=== PATIENT | female | born 2000 | race Caucasian/White ===

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

== ENCOUNTER → 2020-02-17 | Outpatient (CLI) | payer OTHER | LOC: EEVIPCON 14:23 → LABWHC1 14:23 | PROVIDERS: ATTEND Internal Medicine | DX: Z32.01 Encounter for pregnancy test, result positive (principal); Z3A.00 Weeks of gestation of pregnancy not specified | CPT/HCPCS: 36415; 84702 ==

== ENCOUNTER → 2020-03-12 | Outpatient (CLI) | payer OTHER ==
[2020-03-12 15:34] LABS: HCT 38.3 % (34.0-46.0); MCH 29.3 pg (25.0-35.0); MCV 86.2 fL (80.0-100.0); Mean Platelet Volume 7.8; Platelet Count 207 k/uL (150-450); RBC 4.44 m/uL (3.80-5.40); RDW 13.8 % (11.5-15.5); WBC 12.1 k/uL (4.0-11.0)
[2020-03-13 03:39] LABS: Hepatitis B Surface Antigen Non-Reactive (Non-Reactive)
[2020-03-13 04:08] LABS: African American GFR (CKD) 152.1 (60.0-200.0); Non-African American GFR(CKD) 131.2 (60.0-200.0)
[2020-03-13 05:17] LABS: Toxoplasma Antibody (IgG) <3.0 IU/mL (<7.2); Toxoplasma Antibody (IgM) <3.0 AU/mL (<8.0)
[2020-03-13 07:16] LABS: HIV 2 AB Non-Reactive (Non-Reactive); HIV AB P24 Non-Reactive (Non-Reactive); HIV P24 AG Non-Reactive (Non-Reactive)
== END | disposition home or self-care (01) ==
LOC: LABWHC1 14:20
PROVIDERS: ATTEND Obstetrics & Gynecology
DX: Z34.02 Encounter for supervision of normal first pregnancy, second trimester (principal); Z3A.00 Weeks of gestation of pregnancy not specified
CPT/HCPCS: 36415; 82565; 82947; 85027; 86762; 86777; 86778; 86780; 86850; 86900; 86901; 87340; 87390

== ENCOUNTER 2020-04-18 22:14 | Emergency (ER) | payer OTHER ==
[2020-04-18 22:27] VITALS: RESP 16
[2020-04-18] MEDS ORDERED: SODIUM CHLORIDE 0.9% 1,000 ML IV ONE (22:38)
--- NOTE | 2020-04-18 22:57 | ED ---
Female Urogenital HPI - General Chief complaint: Vaginal Bleeding Stated complaint: 19 Wks - Spotting Time Seen by Provider: 04/18/20 22:36 Source: patient Mode of arrival: ambulatory Limitations: no limitations - History of Present Illness Initial comments: Patient is a 19-year-old female, , 19 weeks , presenting to emergency Department with chief complaint of abdominal cramping and vaginal spotting. Patient reports she woke up at 8:30 tonight with some left and right- sided abdominal cramping. States she also noticed some vaginal spotting which has since resolved but the cramping is still persistent. Patient reports she t ypically vomits daily throughout her . States she does feel nauseous right now but did not vomit after the onset of the abdominal pain. She does report some back pain which she states is associated with the . She denies any night sweats or chills. Does report increased frequency more than her baseline but denies any urgency or dysuria. Denies hematuria, hematochezia melena. Denies any vaginal discharge or foul smell. Last Menstrual Period: 11/12/19 - Related Data Previous Rx's Medication Instructions Recorded FLUoxetine HCL [PROzac] 20 mg PO DAILY #30 cap 09/26/17 lamoTRIgine [LaMICtal] 100 mg PO DAILY #30 tab 09/26/17 Allergies Allergy/AdvReac Type Severity Reaction Status Date / Time No Known Allergies Allergy Verified 02/05/18 20:25 Review of Systems ROS Statement: Those systems with pertinent positive or pertinent negative responses have been documented in the HPI. ROS Other: All systems not noted in ROS Statement are negative. Past Medical History Past Medical History: No Reported History Additional Past Medical History / Comment(s): depression /last seizure at 14 years old History of Any Multi-Drug Resistant Organisms: None Reported Past Surgical History: Ear Surgery Past Anesthesia/Blood Transfusion Reactions: No Reported Reaction Past Psychological History: Anxiety, Depression Smoking Status: Never smoker Past Alcohol Use History: None Reported Past Drug Use History: None Reported, Marijuana - Past Family History Mother Family Medical History: No Reported History Father Family Medical History: No Reported History General Exam Limitations: no limitations General appearance: alert, in no apparent distress Head exam: Present: atraumatic, normocephalic, normal inspection Eye exam: Present: normal appearance, PERRL, EOMI Pupils: Present: normal accommodation ENT exam: Present: normal exam, normal oropharynx, mucous membranes moist Neck exam: Present: normal inspection, full ROM. Absent: tenderness Respiratory exam: Present: normal lung sounds bilaterally. Absent: respiratory distress, wheezes, rales, rhonchi Cardiovascular Exam: Present: regular rate, normal rhythm, normal heart sounds GI/Abdominal exam: Present: soft, tenderness (Mild left upper and right upper quadrant tenderness), normal bowel sounds, other (Fundus at the umbilicus). Absent: distended, guarding, rebound External exam: Present: normal external exam. Absent: erythema, swelling, lesions, lacerations, ecchymosis Speculum exam: Present: normal speculum exam. Absent: erythema, vaginal discharge, cervical discharge, vaginal bleeding, foreign body Extremities exam: Present: normal inspection, full ROM, normal capillary refill, other (+2 ulnar and radial pulses bilaterally.). Absent: tenderness Back exam: Present: normal inspection, full ROM, tenderness, paraspinal tenderness (Bilateral) Neurological exam: Present: alert, oriented X3 Psychiatric exam: Present: normal affect, normal mood Skin exam: Present: warm, dry, intact, normal color Course Vital Signs 04/18/20 04/19/20 22:24 01:00 Temperature 98.4 F 98.8 F Pulse Rate 97 85 Respiratory 16 16 Rate Blood Pressure 92/61 109/74 O2 Sat by Pulse 97 99 Oximetry Medical Decision Making - Medical Decision Making Patient is a 19-year-old female , 19 week presents emergency Department with a chief complaint of abdominal cramping and vaginal bleeding. On exam patient has mild tenderness in the bilateral flank regions. No CVA tenderness. Pelvic examination reveals no signs of any vaginal bleeding. No foul odor or discharge. Gonorrhea and chlamydia pending. Trichomonas negative. Transabdominal ultrasound reveals a gestational age of 18 weeks and 3 days. No complicating processes seen. Patient was given fluids. CBC reveals leukocytosis of 14.7 although this could be attributed to her parents. CMP and UA are unremarkable. No asymptomatic bacteriuria. Patient is to follow-up with on Monday. Patient feels comfortable going home. States the cramping has subsided. Strict return parameters were thoroughly discussed with patient was under setting ago. Case discussed with physician. - Lab Data Result diagrams: 04/18/20:52 04/18/20 22:52 Lab Results 04/18/20 04/18/20 04/18/20 Range/Units 22:52 22:52 22:53 WBC 14.7 H (4.0-11.0) k/uL RBC 4.51 (3.80-5.40) m/uL Hgb 12.8 (11.4-16.0) gm/dL Hct 38.3 (34.0-46.0) % MCV 84.8 (80.0-100.0) fL MCH 28.3 (25.0-35.0) pg MCHC 33.3 (31.0-37.0) g/dL RDW 13.6 (11.5-15.5) % Plt Count 188 (150-450) k/uL Neutrophils % 77 % Lymphocytes % 17 % Monocytes % 3 % Eosinophils % 2 % Basophils % 0 % Neutrophils # 11.3 H (1.3-7.7) k/uL Lymphocytes # 2.5 (1.0-4.8) k/uL Monocytes # 0.5 (0-1.0) k/uL Eosinophils # 0.3 (0-0.7) k/uL Basophils # 0.1 (0-0.2) k/uL Sodium 135 L (137-145) mmol/L Potassium 3.9 (3.5-5.1) mmol/L Chloride 105 (98-107) mmol/L Carbon Dioxide 21 L (22-30) mmol/L Anion Gap 9 mmol/L BUN 12 (7-17) mg/dL Creatinine 0.47 L (0.52-1.04) mg/dL Est GFR (CKD-EPI)AfAm >90 (>60 ml/min/1.73 sqM) Est GFR (CKD-EPI)NonAf >90 (>60 ml/min/1.73 sqM) Glucose 104 H (74-99) mg/dL Calcium 9.5 (8.4-10.2) mg/dL Total Bilirubin 0.2 (0.2-1.3) mg/dL AST 21 (14-36) U/L ALT 26 (4-34) U/L Alkaline Phosphatase 45 (38-126) U/L Total Protein 6.5 (6.3-8.2) g/dL Albumin 3.7 (3.5-5.0) g/dL HCG, Quant 04785.5 mIU/mL Urine Color Urine Appearance (Clear) Urine pH (5.0-8.0) Ur Specific [place] (1.001-1.035) Urine Protein (Negative) Urine Glucose (UA) (Negative) Urine Ketones (Negative) Urine Blood (Negative) Urine Nitrite (Negative) Urine Bilirubin (Negative) Urine Urobilinogen (<2.0) mg/dL Ur Leukocyte Esterase (Negative) Urine RBC (0-5) /hpf Urine WBC (0-5) /hpf Ur Squamous Epith Cells (0-4) /hpf Urine Mucus (None) /hpf Trichomonas Ag (Rapid) (Negative) Blood Type O Positive Blood Type Recheck O Pos Bld Type Recheck Status No Antibody Screen NEGATIVE Spec Expiration Date 04/21/2020235204/19/20 04/19/20 Range/Units 00:01 00:07 WBC (4.0-11.0) k/uL RBC (3.80-5.40) m/uL Hgb (11.4-16.0) gm/dL Hct (34.0-46.0) % MCV (80.0-100.0) fL MCH (25.0-35.0) pg MCHC (31.0-37.0) g/dL RDW (11.5-15.5) % Plt Count (150-450) k/uL Neutrophils % % Lymphocytes % % Monocytes % % Eosinophils % % Basophils % % Neutrophils # (1.3-7.7) k/uL Lymphocytes # (1.0-4.8) k/uL Monocytes # (0-1.0) k/uL Eosinophils # (0-0.7) k/uL Basophils # (0-0.2) k/uL Sodium (137-145) mmol/L Potassium (3.5-5.1) mmol/L Chloride (98-107) mmol/L Carbon Dioxide (22-30) mmol/L Anion Gap mmol/L BUN (7-17) mg/dL Creatinine (0.52-1.04) mg/dL Est GFR (CKD-EPI)AfAm (>60 ml/min/1.73 sqM) Est GFR (CKD-EPI)NonAf (>60 ml/min/1.73 sqM) Glucose (74-99) mg/dL Calcium (8.4-10.2) mg/dL Total Bilirubin (0.2-1.3) mg/dL AST (14-36) U/L ALT (4-34) U/L Alkaline Phosphatase (38-126) U/L Total Protein (6.3-8.2) g/dL Albumin (3.5-5.0) g/dL HCG, Quant mIU/mL Urine Color Yellow Urine Appearance Cloudy H (Clear) Urine pH 6.0 (5.0-8.0) Ur Specific [place] 1.022 (1.001-1.035) Urine Protein Negative (Negative) Urine Glucose (UA) Negative (Negative) Urine Ketones Negative (Negative) Urine Blood Negative (Negative) Urine Nitrite Negative (Negative) Urine Bilirubin Negative (Negative) Urine Urobilinogen <2.0 (<2.0) mg/dL Ur Leukocyte Esterase Negative (Negative) Urine RBC 1 (0-5) /hpf Urine WBC 3 (0-5) /hpf Ur Squamous Epith Cells 21 H (0-4) /hpf Urine Mucus Occasional H (None) /hpf Trichomonas Ag (Rapid) Negative (Negative) Blood Type Blood Type Recheck Bld Type Recheck Status Antibody Screen Spec Expiration Date Disposition Clinical Impression: Abdominal cramping Disposition: HOME SELF-CARE Condition: Stable Instructions (If sedation given, give patient instructions): Abdominal Pain in (ED) Additional Instructions: Follow-up with . Return to emergency department if symptoms worsen. Is patient prescribed a controlled substance at d/c from ED?: No Referrals: Michaela Richter MD [Primary Care Provider] - 1-2 days Time of Disposition: 00:59
[2020-04-18 23:23] LABS: Basophils # (A) 0.1 k/uL (0-0.2); Basophils % (A) 0 %; Eosinophils # (A) 0.3 k/uL (0-0.7); Eosinophils % (A) 2 %; HCT 38.3 % (34.0-46.0); HGB 12.8 gm/dL (11.4-16.0); Lymphocytes # (A) 2.5 k/uL (1.0-4.8); Lymphocytes % (A) 17 %; MCH 28.3 pg (25.0-35.0); MCHC 33.3 g/dL (31.0-37.0); MCV 84.8 fL (80.0-100.0); Mean Platelet Volume 8.1; Monocytes # (A) 0.5 k/uL (0-1.0); Monocytes % (A) 3 %; Neutrophils # (A) 11.3 k/uL (1.3-7.7); Neutrophils % (A) 77 %; Platelet Count 188 k/uL (150-450); RBC 4.51 m/uL (3.80-5.40); RDW 13.6 % (11.5-15.5); WBC 14.7 k/uL (4.0-11.0)
[2020-04-18 23:35] LABS: ALT 26 U/L (4-34); AST 21 U/L (14-36); African American GFR (CKD) >90 (>60 ml/min/1.73 sqM); Albumin 3.7 g/dL (3.5-5.0); Alkaline Phosphatase 45 U/L (38-126); Anion Gap 9 mmol/L; Blood Urea Nitrogen 12 mg/dL (7-17); Calcium 9.5 mg/dL (8.4-10.2); Carbon Dioxide 21 mmol/L (22-30); Chloride 105 mmol/L (98-107); Glucose 104 mg/dL (74-99); Non-African American GFR(CKD) >90 (>60 ml/min/1.73 sqM); Potassium 3.9 mmol/L (3.5-5.1); Sodium 135 mmol/L (137-145); Total Bilirubin 0.2 mg/dL (0.2-1.3); Total Protein 6.5 g/dL (6.3-8.2)
--- NOTE | 2020-04-18 23:40 | US ---
EXAMINATION TYPE: US OB >= 14 wk fetus DATE OF EXAM: 04/18/2020 COMPARISON: None CLINICAL HISTORY: abd carmping TECHNIQUE: Transabdominal (TA) GESTATIONAL AGE / DATING Physician Established: (18 weeks/3 days) EDC: 09/16/2020 Dates by LMP: (18 weeks/3 days) EDC: 09/16/2020 Dates by First Scan: No previous this is first scan Dates by Current Scan: (18 weeks/2 days) EDC: 09/17/2020 Beta HCG (if available): not available SURVEY IUP: Single PLACENTA: Posterior PREVIA: No Previa MIRNA: 14.7 cm Normal CERVICAL LENGTH (transabdominal: norm > 3.0cm): 3.4 cm BIOMETRY PRESENTATION: Breech BPD: 4.1 cm 18 weeks / 2 days HC: 15.1 cm 18 weeks / 1 days AC: 12.8 cm 18 weeks / 3 days FL: 2.8 cm 18 weeks / 4 days ESTIMATED WEIGHT IN GRAMS: 241 grams ESTIMATED WEIGHT IN LBS/OZ: 0 lbs. 9 oz. WEIGHT PERCENTAGE BASED ON ESTABLISHED DATES: 48% HC/AC: 1.17 Normal FL/AC: 21.9 Normal HEART RATE: 154 bpm RHYTHM: Normal Growth according to dates. Normal MIRNA, placenta, and cervix. IMPRESSION: The ultrasound gestational age is 18 weeks and 3 days. No complicating process seen. No old exam avai lable for comparison.
[2020-04-19 00:31] LABS: Appearance,Urine Cloudy (Clear); Bilirubin,Urine Negative (Negative); Blood,Urine Negative (Negative); Color,Urine Yellow; Glucose,Urine (UA) Negative (Negative); Ketones,Urine Negative (Negative); Leukocyte Esterase,Urine Negative (Negative); Mucus,Urine Occasional /hpf; Nitrite,Urine Negative (Negative); Protein,Urine Negative (Negative); RBC,Urine 1 /hpf (0-5); Specific Gravity,Urine 1.022 (1.001-1.035); Squamous Epithelial Cell,Urine 21 /hpf (0-4); Urobilinogen,Urine <2.0 mg/dL (<2.0); WBC,Urine 3 /hpf (0-5)
[2020-04-19 00:53] LABS: HCG,Quantitative Serum 17225.5 mIU/mL
[2020-04-19 01:02] VITALS: BP 109/74; PULSE 85; TEMP 98.8
[2020-04-20 15:24] LABS: N. gonorrhoeae,PCR Negative (Neg,Equiv); Neisseria Source Vagina
== END 2020-04-19 01:10 | disposition home or self-care (01) ==
LOC: EC 22:14
DX: O46.92 Antepartum hemorrhage, unspecified, second trimester (principal); O99.89 Other specified diseases and conditions complicating pregnancy, childbirth and the puerperium; R10.9 Unspecified abdominal pain; O99.112 Other diseases of the blood and blood-forming organs and certain disorders involving the immune mechanism complicating pregnancy, second trimester; D72.829 Elevated white blood cell count, unspecified; Z3A.18 18 weeks gestation of pregnancy
CPT/HCPCS: 36415; 76805; 80053; 81001; 84702; 85025; 86850; 86900; 86901; 87070; 87591; 87808; 96360; 99284

== ENCOUNTER 2020-06-18 14:13 | Outpatient (CLI) | payer OTHER ==
[2020-06-18 16:30] VITALS: BP 127/62; PULSE 99; RESP 16; TEMP 98.1
--- NOTE | 2020-06-23 13:06 | P.MSEPDOC ---
Presenting Problems - Arrival Data Date of Arrival on Unit: 06/18/20 Time of Arrival on Unit: 14:10 Mode of Transport: Ambulatory - Complaint OB-Reason for Admission/Chief Complaint: Acute Nausea/Vomiting, Pain Comment: nausea and vomiting 6x this morning with diarrhea and some cramping Medical History - Information : 1 Para: 0 Term: 0 : 0 Abortions: Spontaneous or Elective: 0 Number of Living Children: 0 - Gestational Age Gestational Age by MOY (wks/days): 27 Weeks and 1 Days Review of Systems - Review of Systems Constitutional: No problems Breast: No problems ENT: No problems Cardiovascular: No problems Respiratory: No problems Gastrointestinal: Diarrhea Genitourinary: No problems Musculoskeletal: No problems Neurological: No problems Skin: No problems Vital Signs - Temperature Temperature: 98.1 F Temperature Source: Oral - Pulse Right Brachial Pulse Rate: 99 Pulse Assessment Method: Automatic Cuff - Respirations Respiratory Rate: 16 Oxygen Delivery Method: Room Air O2 Sat by Pulse Oximetry: 98 - Blood Pressure Right Arm Blood Pressure: 127/62 Blood Pressure Mean: 83 Blood Pressure Source: Automatic Cuff Medical Screen Scoring (Pre) - Cervical Exam Dilation: Exam Deferred Effacement: Exam Deferred Membranes: Intact - Uterine Contractions Frequency: N/A Duration: N/A Intensity: N/A - Maternal Vital Signs Maternal Temperature: N/A Signs of Preeclampsia: N/A Maternal Respirations: N/A - Maternal Trauma Maternal Trauma: N/A - Assessment - Baby A Baseline FHR: 140 Heart Rate - NICHD Category: Category II (Indeterminate) = 3 Position: N/A Station: N/A - Total Score - Baby A Total Score - Baby A: 3 - Total Score - Baby B Total Score - Baby B: 0 - Total Score - Baby C Total Score - Baby C: 0 - Level of Risk - Baby A Level of Risk - Baby A: Low (0-5) - Level of Risk - Baby B Level of Risk - Baby B: Low (0-5) - Level of Risk - Baby C Level of Risk - Baby C: Low (0-5) Physician Notification (Pre) - Physician Notified Physician Notified Date: 06/18/20 Physician Notified Time: 15:07 New Order Received: Yes (d/c if fhts wnl and can keep fluids down) Disposition - Disposition OB Disposition: Triage, Discharge to home, Written follow up instructions reviewed Discharge Date: 06/18/20 Discharge Time: 15:49 I agree with the RN Medical Screening Exam: Yes Risk & Benefit of care provided described in d/c instruction: Yes Diagnosis: VOMITING OF , UNSPECIFIED
== END 2020-06-18 15:49 | disposition home or self-care (01) ==
LOC: FBPOP 14:13
PROVIDERS: ATTEND Obstetrics & Gynecology
DX: O21.9 Vomiting of pregnancy, unspecified (principal); Z3A.27 27 weeks gestation of pregnancy
CPT/HCPCS: 99213

== ENCOUNTER 2020-06-27 20:40 | Emergency (ER) | payer OTHER ==
[2020-06-27] MEDS ORDERED: ACETAMINOPHEN TAB 500 MG TAB PO STA (21:20)
--- NOTE | 2020-06-27 21:32 | ED ---
General Adult HPI - General Chief complaint: Upper Respiratory Infection Stated complaint: RICK, Abd Pain Time Seen by Provider: 06/27/20 21:05 Source: patient Mode of arrival: ambulatory Limitations: no limitations - History of Present Illness Initial comments: 19-year-old female presents to emergency department this evening with complaints of nasal congestion and sore throat due to postnasal drip, onset 48 hours prior to arrival. Reports history of environmental ALLERGIES so she took her Claritin last night which did not relieve her symptoms. Denies fever, cough, or difficulty breathing. States this afternoon she developed low back pain, mild diffuse abdominal cramping, and generalized body aches. Patient is 28 weeks ; she is . Also states she has not felt the baby move today. Patient denies any recent rash, chills, shortness of breath, chest pain, nausea, vomiting, diarrhea, constipation, numbness, tingling, dizziness, weakness, hematuria, dysuria, urinary urgency, urinary frequency, headache, visual changes, or any other complaints. - Related Data Home Medications Medication Instructions Recorded Confirmed No Known Home Medications 06/18/20 06/18/20 Allergies Allergy/AdvReac Type Severity Reaction Status Date / Time No Known Allergies Allergy Verified 06/27/20 20:47 Review of Systems ROS Statement: Those systems with pertinent positive or pertinent negative responses have been documented in the HPI. ROS Other: All systems not noted in ROS Statement are negative. Past Medical History Past Medical History: No Reported History Additional Past Medical History / Comment(s): depression /last seizure at 14 years old History of Any Multi-Drug Resistant Organisms: None Reported Past Surgical History: Ear Surgery Past Anesthesia/Blood Transfusion Reactions: No Reported Reaction Past Psychological History: Anxiety, Depression Smoking Status: Former smoker Past Alcohol Use History: None Reported Past Drug Use History: None Reported - Past Family History Mother Family Medical History: No Reported History Father Family Medical History: No Reported History General Exam Limitations: no limitations (Well-developed, well-nourished female in no acute distress. Initial temperature 99.2F, pulse 96, respirations 18, blood pressure 109/73, pulse ox 97% on room air.) General appearance: alert, in no apparent distress ENT exam: Present: normal exam, normal oropharynx, mucous membranes moist Neck exam: Present: normal inspection. Absent: tenderness, meningismus, lymphadenopathy Respiratory exam: Present: normal lung sounds bilaterally. Absent: respiratory distress, wheezes, rales, rhonchi, stridor Cardiovascular Exam: Present: regular rate, normal rhythm, normal heart sounds. Absent: systolic murmur, diastolic murmur, rubs, gallop, clicks GI/Abdominal exam: Present: soft, normal bowel sounds. Absent: distended, tenderness, guarding, rebound, rigid Back exam: Present: normal inspection. Absent: CVA tenderness (R), CVA tenderness (L) Neurological exam: Present: alert, oriented X3, CN II-XII intact Psychiatric exam: Present: normal affect, normal mood Skin exam: Present: warm, dry, intact, normal color. Absent: rash Course Vital Signs 06/27/20 06/27/20 06/27/20 20:45 21:50 22:55 Temperature 99.2 F 97.6 F 98.0 F Pulse Rate 96 87 82 Respiratory 18 16 16 Rate Blood Pressure 109/73 99/68 110/66 O2 Sat by Pulse 97 97 98 Oximetry Medical Decision Making - Medical Decision Making 28 week 19-year-old female presents to emergency department this evening with complaints of upper respiratory symptoms including nasal congestion and sore throat for the past 48 hours. Attempted to treat symptoms with Clariti n last night but did not experience relief of symptoms. Patient is afebrile and denied cough. Influenza negative, COVID swab obtained and is pending at this time. Also reported low back pain, mild diffuse abdominal cramping, and generalized body aches beginning this afternoon. Also states she has not felt the baby move today. No significant findings in urine. heart tones 141- 146. Able to tolerate fluids without difficulty. Discussed follow up with PCP or OB-Band Saw Operator [employer] in the next 1-2 days for a recheck. Return parameters discussed in detail. Patient verbalizes understanding and agrees with this plan. - Lab Data Lab Results 06/27/20 06/27/20 Range/Units 21:28 21:28 Urine Color Yellow Urine Appearance Cloudy H (Clear) Urine pH 6.0 (5.0-8.0) Ur Specific Bitely 1.028 (1.001-1.035) Urine Protein Negative (Negative) Urine Glucose (UA) Negative (Negative) Urine Ketones Negative (Negative) Urine Blood Negative (Negative) Urine Nitrite Negative (Negative) Urine Bilirubin Negative (Negative) Urine Urobilinogen <2.0 (<2.0) mg/dL Ur Leukocyte Esterase Negative (Negative) Urine RBC 1 (0-5) /hpf Urine WBC 3 (0-5) /hpf Ur Squamous Epith Cells 12 H (0-4) /hpf Urine Mucus Rare H (None) /hpf Influenza Type A RNA Not Detected (Not Detectd) Influenza Type B (PCR) Not Detected (Not Detectd) Disposition Clinical Impression: Viral illness Disposition: HOME SELF-CARE Condition: Good Instructions (If sedation given, give patient instructions): Viral Syndrome (ED) Additional Instructions: Some medications you may try are [id number] that are safe in : Nasal Saline (for nasal congestion) Afrin (for nasal congestion) (No longer than three days) Cough drops and lozenges (For sore throat) Tylenol (For pain and fever) Robitussin (for cough) Increase fluids. Get adequate rest. Follow up with your primary care physician or OBGYN for recheck as soon as possible. Is patient prescribed a controlled substance at d/c from ED?: No Referrals: Michaela Richter MD [Primary Care Provider] - 1-2 days Time of Disposition: 22:41
[2020-06-27 22:13] VITALS: RESP 16
[2020-06-27 22:25] LABS: Appearance,Urine Cloudy (Clear); Bilirubin,Urine Negative (Negative); Blood,Urine Negative (Negative); Color,Urine Yellow; Glucose,Urine (UA) Negative (Negative); Ketones,Urine Negative (Negative); Leukocyte Esterase,Urine Negative (Negative); Mucus,Urine Rare /hpf; Nitrite,Urine Negative (Negative); Protein,Urine Negative (Negative); RBC,Urine 1 /hpf (0-5); Specific Gravity,Urine 1.028 (1.001-1.035); Squamous Epithelial Cell,Urine 12 /hpf (0-4); Urobilinogen,Urine <2.0 mg/dL (<2.0); WBC,Urine 3 /hpf (0-5)
[2020-06-27 22:58] VITALS: BP 110/66; PULSE 82; TEMP 98
== END 2020-06-27 22:55 | disposition home or self-care (01) ==
LOC: EEVIPCON 20:40 → EC 20:40
DX: O98.513 Other viral diseases complicating pregnancy, third trimester (principal); O26.893 Other specified pregnancy related conditions, third trimester; M54.5 Low back pain; R10.9 Unspecified abdominal pain; Z3A.28 28 weeks gestation of pregnancy; Z87.891 Personal history of nicotine dependence; Z20.828 Contact with and (suspected) exposure to other viral communicable diseases
CPT/HCPCS: 81001; 87502; 99283; U0003

== ENCOUNTER 2020-07-02 16:35 | Emergency (ER) | payer OTHER ==
--- NOTE | 2020-07-02 17:37 | XR ---
EXAMINATION: XR chest 2V DATE AND TIME: 07/02/2020 5:16 PM CLINICAL INDICATION: PHH; please shield TECHNIQUE: Departmental protocol COMPARISON: 07/17/2011 FINDINGS: The lungs are clear. The pleural spaces are negative. The cardiac silhouette is not enlarged. The remainder of the mediastinal silhouette is unremarkable. The skeletal structures and soft tissues are negative for acute findings. IMPRESSION: NO ACUTE PROCESS.
[2020-07-02] MEDS ORDERED: ALBUTEROL NEBULIZED 2.5 MG/3 ML INHALATION STA (18:18)
--- NOTE | 2020-07-02 19:56 | ED ---
General Adult HPI - General Chief complaint: Upper Respiratory Infection Stated complaint: SOB,Cough,29 weeks Time Seen by Provider: 07/02/20 16:40 Source: patient, RN notes reviewed, old records reviewed Mode of arrival: ambulatory Limitations: no limitations - History of Present Illness Initial comments: 19 year-old female patient presented to ED for evaluation. Patient is 28 weeks gestation. She reports that for the last week she's been having cough little bit of chest tightness and some wheezing. rhinitis. Minimal shortness of breath. Denies any abdominal pain or any vaginal bleeding. She reports that she was tested for coronavirus which was negative. She presents to ED for evaluation and to rule out pneumonia. Systemic: Pt denies fatigue, fever/chills, rash. Pt denies weakness, night sweats, weight loss. Neuro: Pt denies headache, visual disturbances, syncope or pre-syncope. HEENT: Pt denies ocular discharge or irritation, otalgia, rhinorrhea, pharyngitis or notable lymphadenopathy. Cardiopulmonary: Pt denies chest pain, heart palpitations, dyspnea on exertion. Abdominal/GI: Pt denies abdominal pain, n/v/d. : Pt denies dysuria, burning w/ urination, frequency/urgency. Denies new onset urinary or bowel incontinence. MSK: Pt denies myalgia, loss of strength or function in extremities. Neuro: Pt denies new onset weakness, paresthesias. - Related Data Previous Rx's Medication Instructions Recorded Albuterol Inhaler [Ventolin Hfa 1 puff INHALATION RT-QID PRN #1 07/02/20 Inhaler] inhaler Allergies Allergy/AdvReac Type Severity Reaction Status Date / Time No Known Allergies Allergy Verified 07/02/20 16:39 Review of Systems ROS Statement: Those systems with pertinent positive or pertinent negative responses have been documented in the HPI. ROS Other: All systems not noted in ROS Statement are negative. Past Medical History Past Medical History: No Reported History Additional Past Medical History / Comment(s): depression /last seizure at 14 years old History of Any Multi-Drug Resistant Organisms: None Reported Past Surgical History: Ear Surgery Past Anesthesia/Blood Transfusion Reactions: No Reported Reaction Past Psychological History: Anxiety, Depression Smoking Status: Former smoker Past Alcohol Use History: None Reported Past Drug Use History: None Reported - Past Family History Mother Family Medical History: No Reported History Father Family Medical History: No Reported History General Exam - General Exam Comments Initial Comments: Constitutional: NAD, AOX3, Pt has pleasant affect. HEENT: NC/AT, trachea midline, neck supple, no lymphadenopathy.External ears appear normal, without discharge. Mucous membranes moist. Eyes PERRLA, EOM intact. There is no scleral icterus. No pallor noted. Cardiopulmonary: RRR, no murmurs, rubs or gallops, no JVD noted. Mild wheezing noted in anterior lung drew. Reproducible chest tenerness parasternal. No peripheral edema. Abdominal exam: Abdomen soft and appropriately-distended for . Abdomen non-tender to palpation in all 4 quadrants. Bowel sounds active in LLQ. No hepatosplenomegaly. Neuro: CN II-XII grossly intact. No nuchal rigidity. MSK: No posterior calf tenderness bilaterally, homans sign negative bilaterally. Posterior tibialis and radial pulse +2 bilaterally. Sensation intact in upper and lower extremities. Full active ROM in upper and lower extremities, 5/5 stregnth. Limitations: no limitations Course Vital Signs 07/02/20 07/02/20 07/02/20 16:36 17:31 17:45 Temperature 98.2 F Pulse Rate 95 87 Respiratory 18 20 20 Rate Blood Pressure 92/61 115/65 O2 Sat by Pulse 95 97 Oximetry 07/02/20 07/02/20 19:19 19:42 Temperature Pulse Rate 88 88 Respiratory Rate Blood Pressure O2 Sat by Pulse Oximetry Medical Decision Making - Medical Decision Making 19-year-old female patient ED for cough congestion rhinitis. She is 28 weeks gestation. No abdominal pain or vaginal bleeding. Chesty negative for pneu monia. Mild wheezing resolved with albuterol. The heart tones were obtained and are reassuring in the 140's. She is feeling much improved after breathing treatment. Pt is PERC negative. Patient will be discharged and follow up with cabin worker and PCP tomorrow. Will return to ED with any worsening symptoms. Case discussed with Dr. Bowers. - EKG Data -: EKG Interpreted by Me (and Dr. Bowers ) EKG Comments: Ventricular rate 83, AZ 144, QRS 76, QT/QTc 344/404, Normal sinus rhyhtm. Normal EKG, no concern for acute ischemia. Disposition Clinical Impression: Cough, Disposition: HOME SELF-CARE Condition: Stable Instructions (If sedation given, give patient instructions): Acute Cough (ED), (ED) Additional Instructions: Follow up with PCP and foiling machine adjuster tomorrow. Use albuterol inhaler as needed. Return to ED with any worsening symptoms. Prescriptions: Albuterol Inhaler [Ventolin Hfa Inhaler] 1 puff INHALATION RT-QID PRN #1 inhaler PRN Reason: wheezing Is patient prescribed a controlled substance at d/c from ED?: No Referrals: Michaela Richter MD [Primary Care Provider] - 1-2 days
[2020-07-02 20:02] VITALS: BP 120/77; PULSE 75; RESP 18; TEMP 98.7
== END 2020-07-02 20:02 | disposition home or self-care (01) ==
LOC: EC 16:35
DX: O26.893 Other specified pregnancy related conditions, third trimester (principal); R05 Cough; Z87.891 Personal history of nicotine dependence; Z3A.28 28 weeks gestation of pregnancy
CPT/HCPCS: 71046; 93005; 94640; 99284

== ENCOUNTER 2020-07-13 15:18 | Outpatient (CLI) | payer OTHER ==
[2020-07-13] MEDS ORDERED: ONDANSETRON 4 MG/2 ML VIAL IM STA (16:01)
[2020-07-13] MEDS ORDERED: LACTATED RINGERS 1,000 ML IV ONE (16:15)
[2020-07-13 16:19] LABS: Appearance,Urine Cloudy (Clear); Bilirubin,Urine Negative (Negative); Blood,Urine Negative (Negative); Color,Urine Yellow; Glucose,Urine (UA) Negative (Negative); Ketones,Urine Negative (Negative); Leukocyte Esterase,Urine Trace (Negative); Mucus,Urine Moderate /hpf; Nitrite,Urine Negative (Negative); PH, Urine 7.5 (5.0-8.0); Protein,Urine Trace (Negative); RBC,Urine 1 /hpf (0-5); Specific Gravity,Urine 1.023 (1.001-1.035); Squamous Epithelial Cell,Urine 14 /hpf (0-4); Urobilinogen,Urine <2.0 mg/dL (<2.0); WBC,Urine 4 /hpf (0-5)
[2020-07-13] MEDS ORDERED: ONDANSETRON 4 MG/2 ML VIAL IVP STA (16:21)
[2020-07-13 17:25] VITALS: BP 108/63; RESP 16; TEMP 96.5
[2020-07-13 17:42] VITALS: PULSE 80
--- NOTE | 2020-07-16 07:38 | P.MSEPDOC ---
Presenting Problems - Arrival Data Date of Arrival on Unit: 07/13/20 Time of Arrival on Unit: 15:18 Mode of Transport: Ambulatory - Complaint OB-Reason for Admission/Chief Complaint: Hyperemesis Medical History - Information : 1 Para: 0 Term: 0 : 0 Abortions: Spontaneous or Elective: 0 Number of Living Children: 0 - Gestational Age Gestational Age by MOY (wks/days): 30 Weeks and 5 Days Review of Systems - Review of Systems Constitutional: No problems Breast: No problems ENT: No problems Cardiovascular: No problems Respiratory: No problems Gastrointestinal: No problems Genitourinary: No problems Musculoskeletal: No problems Neurological: No problems Skin: No problems Comment: N/V for 3 days Vital Signs - Temperature Temperature: 96.5 F Temperature Source: Temporal Artery Scan - Pulse Right Pulse Rate: 80 Pulse Assessment Method: Automatic Cuff - Respirations Respiratory Rate: 16 Oxygen Delivery Method: Room Air O2 Sat by Pulse Oximetry: 98 - Blood Pressure Right Arm Blood Pressure: 108/63 Blood Pressure Mean: 78 Blood Pressure Source: Automatic Cuff Medical Screen Scoring (Pre) - Cervical Exam Dilation: Exam Deferred Effacement: Exam Deferred Membranes: Intact - Uterine Contractions Frequency: N/A Duration: N/A Intensity: N/A - Maternal Vital Signs Maternal Temperature: N/A Signs of Preeclampsia: N/A Maternal Respirations: N/A - Maternal Trauma Maternal Trauma: N/A - Assessment - Baby A Baseline FHR: 135 Heart Rate - NICHD Category: Category I (Normal) = 0 NST: Reactive Position: N/A Station: N/A - Total Score - Baby A Total Score - Baby A: 0 - Total Score - Baby B Total Score - Baby B: 0 - Total Score - Baby C Total Score - Baby C: 0 - Level of Risk - Baby A Level of Risk - Baby A: Low (0-5) - Level of Risk - Baby B Level of Risk - Baby B: Low (0-5) - Level of Risk - Baby C Level of Risk - Baby C: Low (0-5) Physician Notification (Pre) - Physician Notified Physician Notified Date: 07/13/20 Physician Notified Time: 15:59 New Order Received: Yes - Notification Comment Comment: Start IV and administer 1L LR and 4mg zofran. Send urine for UA. Medical Screen Scoring (Post) - Cervical Exam Dilation: Exam Deferred Effacement: Exam Deferred Membranes: Intact - Uterine Contractions Frequency: N/A Duration: N/A Intensity: N/A - Maternal Vital Signs Maternal Temperature: N/A Maternal Blood Pressure: N/A Signs of Preeclampsia: Headache = 1 Maternal Respirations: N/A - Pain Assessment Pain Scale Used: Numeric (1 - 10) Pain Intensity: 0 Pain Management Goal: 3 - Maternal Trauma Maternal Trauma: N/A - Assessment - Baby A Heart Rate: 135 Heart Rate - NICHD Category: Category I (Normal) = 0 NST: Reactive Position: N/A Station: N/A - Total Score Total Score - Baby A: 1 Total Score - Baby B: 1 Total Score - Baby C: 1 - Post Treatment Level of Risk Post Treatment Level of Risk - Baby A: Low (0-5) Post Treatment Level of Risk - Baby B: Low (0-5) Post Treatment Level of Risk - Baby C: Low (0-5) Physician Notification (Post) - Physician Notified Physician Notified Date: 07/13/20 Physician Notified Time: 17:42 Physician/Practitioner Notified:: Adeline Spoke With: Adeline New Order Received: Yes - Notification Comment Comment: Pt okay to DC home. Pt is no longer feeling nauseated and does not have a MOREJON. Disposition - Disposition OB Disposition: Discharge to home Discharge Date: 07/13/20 Discharge Time: 17:41 I agree with the RN Medical Screening Exam: Yes Risk & Benefit of care provided described in d/c instruction: Yes Diagnosis: NAUSEA WITH VOMITING, UNSPECIFIED
== END 2020-07-13 17:48 | disposition home or self-care (01) ==
LOC: FBPOP 15:18
PROVIDERS: ATTEND Obstetrics & Gynecology
DX: O99.891 Other specified diseases and conditions complicating pregnancy (principal); R11.2 Nausea with vomiting, unspecified; Z3A.30 30 weeks gestation of pregnancy
CPT/HCPCS: 59025; 96360; 96375; 81001; G0463; J2405; 96361; 99214

== ENCOUNTER 2020-07-21 00:40 | Outpatient (CLI) | payer OTHER ==
[2020-07-21 01:31] VITALS: BP 122/56; PULSE 84; RESP 16; TEMP 96.4
--- NOTE | 2020-07-25 06:19 | P.MSEPDOC ---
Presenting Problems - Arrival Data Date of Arrival on Unit: 07/21/20 Time of Arrival on Unit: 00:40 Mode of Transport: Ambulatory - Complaint OB-Reason for Admission/Chief Complaint: Rule Out SROM Comment: Patient presents to triage with c/o of a gush of "cold fluid" around 2200 this evening states she has been having some pain since, but has not noted any more leaking since the gush around 2200 Medical History - Information : 1 Para: 0 Term: 0 : 0 Abortions: Spontaneous or Elective: 0 Number of Living Children: 0 - Gestational Age Gestational Age by MOY (wks/days): 31 Weeks and 6 Days Review of Systems - Review of Systems Constitutional: No problems Breast: No problems ENT: No problems Cardiovascular: No problems Respiratory: No problems Gastrointestinal: No problems Genitourinary: No problems Musculoskeletal: No problems Neurological: No problems Skin: No problems Vital Signs - Temperature Temperature: 96.4 F Temperature Source: Temporal Artery Scan - Pulse Pulse Oximetery Pulse Rate: 84 Pulse Assessment Method: Pulse Oximetry - Respirations Respiratory Rate: 16 Oxygen Delivery Method: Room Air - Blood Pressure Sitting Blood Pressure: 122/56 Blood Pressure Mean: 78 Blood Pressure Source: Automatic Cuff Medical Screen Scoring (Pre) - Cervical Exam Dilation: 0 cm = 0 Membranes: Intact - Uterine Contractions Frequency: N/A Duration: N/A Intensity: N/A - Maternal Vital Signs Maternal Temperature: N/A Signs of Preeclampsia: N/A Maternal Respirations: N/A - Maternal Trauma Maternal Trauma: N/A - Assessment - Baby A Baseline FHR: 130 Heart Rate - NICHD Category: Category I (Normal) = 0 NST: Reactive Position: N/A Station: N/A - Total Score - Baby A Total Score - Baby A: 0 - Total Score - Baby B Total Score - Baby B: 0 - Total Score - Baby C Total Score - Baby C: 0 - Level of Risk - Baby A Level of Risk - Baby A: Low (0-5) - Level of Risk - Baby B Level of Risk - Baby B: Low (0-5) - Level of Risk - Baby C Level of Risk - Baby C: Low (0-5) Physician Notification (Pre) - Physician Notified Physician Notified Date: 07/21/20 Physician Notified Time: 01:10 - Notification Comment Comment: Orders given to discharge patient home with instructions, patient keep regularly scheduled appointment for 08/[address] Stafford Disposition - Disposition OB Disposition: Discharge to home, Written follow up instructions reviewed Discharge Date: 07/21/20 Discharge Time: 01:20 I agree with the RN Medical Screening Exam: Yes Risk & Benefit of care provided described in d/c instruction: Yes Diagnosis: FALSE LABOR BEFORE 37 COMPLETED WEEKS OF GEST, THIRD TRI
== END 2020-07-21 01:25 | disposition home or self-care (01) ==
LOC: FBPOP 00:40
PROVIDERS: ATTEND Obstetrics & Gynecology
DX: O47.03 False labor before 37 completed weeks of gestation, third trimester (principal); Z3A.32 32 weeks gestation of pregnancy
CPT/HCPCS: 59025; 84112; G0463; 99213

== ENCOUNTER 2020-07-25 19:03 | Outpatient (CLI) | payer OTHER ==
[2020-07-25] MEDS ORDERED: ONDANSETRON 4 MG/2 ML VIAL IM STA (19:22)
[2020-07-25] MEDS ORDERED: LACTATED RINGERS 1,000 ML IV SCH (19:30)
[2020-07-25] MEDS ORDERED: ONDANSETRON 4 MG/2 ML VIAL IVP STA (19:37)
[2020-07-25 20:02] LABS: Appearance,Urine Cloudy (Clear); Bilirubin,Urine Negative (Negative); Blood,Urine Negative (Negative); Color,Urine Yellow; Glucose,Urine (UA) Negative (Negative); Ketones,Urine Negative (Negative); Leukocyte Esterase,Urine Negative (Negative); Mucus,Urine Many /hpf; Nitrite,Urine Negative (Negative); Protein,Urine Negative (Negative); RBC,Urine 1 /hpf (0-5); Specific Gravity,Urine 1.023 (1.001-1.035); Squamous Epithelial Cell,Urine 11 /hpf (0-4); Urobilinogen,Urine <2.0 mg/dL (<2.0); WBC,Urine 6 /hpf (0-5)
[2020-07-25 20:51] VITALS: BP 103/59; PULSE 88; RESP 18; TEMP 96.4
--- NOTE | 2020-07-26 21:00 | P.MSEPDOC ---
Presenting Problems - Arrival Data Date of Arrival on Unit: 07/25/20 Time of Arrival on Unit: 19:03 Mode of Transport: Ambulatory - Complaint OB-Reason for Admission/Chief Complaint: Acute Nausea/Vomiting Medical History - Information : 1 Para: 0 Term: 0 : 0 Abortions: Spontaneous or Elective: 0 Number of Living Children: 0 - Gestational Age Gestational Age by MOY (wks/days): 32 Weeks and 3 Days Review of Systems - Review of Systems Constitutional: No problems Breast: No problems ENT: No problems Cardiovascular: No problems Respiratory: No problems Gastrointestinal: No problems Genitourinary: No problems Musculoskeletal: No problems Neurological: No problems Skin: No problems Comment: N/V throughout the Vital Signs - Temperature Temperature: 96.4 F Temperature Source: Temporal Artery Scan - Pulse Right Pulse Oximetery Pulse Rate: 88 Pulse Assessment Method: Pulse Oximetry - Respirations Respiratory Rate: 18 Oxygen Delivery Method: Room Air O2 Sat by Pulse Oximetry: 99 - Blood Pressure Right Arm Blood Pressure: 103/59 Blood Pressure Mean: 73 Blood Pressure Source: Automatic Cuff Medical Screen Scoring (Pre) - Cervical Exam Dilation: Exam Deferred Membranes: Intact - Uterine Contractions Frequency: N/A Duration: N/A Intensity: N/A - Maternal Vital Signs Maternal Temperature: N/A Maternal Blood Pressure: N/A Signs of Preeclampsia: N/A Maternal Respirations: N/A - Maternal Trauma Maternal Trauma: N/A - Assessment - Baby A Baseline FHR: 135 Heart Rate - NICHD Category: Category I (Normal) = 0 NST: Reactive Position: N/A Station: N/A - Total Score - Baby A Total Score - Baby A: 0 - Total Score - Baby B Total Score - Baby B: 0 - Total Score - Baby C Total Score - Baby C: 0 - Level of Risk - Baby A Level of Risk - Baby A: Low (0-5) - Level of Risk - Baby B Level of Risk - Baby B: Low (0-5) - Level of Risk - Baby C Level of Risk - Baby C: Low (0-5) Physician Notification (Pre) - Physician Notified Physician Notified Date: 07/25/20 Physician Notified Time: 19:40 New Order Received: Yes Disposition - Disposition OB Disposition: Discharge to home Discharge Date: 07/25/20 Discharge Time: 20:45 I agree with the RN Medical Screening Exam: Yes Risk & Benefit of care provided described in d/c instruction: Yes Diagnosis: VOMITING OF , UNSPECIFIED
== END 2020-07-25 20:45 | disposition home or self-care (01) ==
LOC: FBPOP 19:03
PROVIDERS: ATTEND Obstetrics & Gynecology
DX: O21.2 Late vomiting of pregnancy (principal); Z3A.32 32 weeks gestation of pregnancy
CPT/HCPCS: 59025; 96361; 96374; 81001; G0463; J2405; 99214

== ENCOUNTER 2020-09-17 16:10 | Inpatient (IN) | payer OTHER ==
[2020-09-17] MEDS ORDERED: DINOPROSTONE 10 MG INSERT.ER VAGINAL ONE (16:42)
[2020-09-18 00:49] LABS: Appearance,Urine Clear (Clear); Bilirubin,Urine Negative (Negative); Blood,Urine Negative (Negative); Color,Urine Yellow; Glucose,Urine (UA) Trace (Negative); Ketones,Urine Negative (Negative); Leukocyte Esterase,Urine Negative (Negative); Nitrite,Urine Negative (Negative); PH, Urine 6.5 (5.0-8.0); Protein,Urine Trace (Negative); Urobilinogen,Urine <2.0 mg/dL (<2.0)
[2020-09-18] MEDS ORDERED: OXYTOCIN 10 UNIT/ML 1 ML VIAL IM PRN (00:50)
[2020-09-18] MEDS ORDERED: CARBOPROST TROMETHAMINE 250 MCG/ML 1 ML AMP IM PRN (00:50)
[2020-09-18] MEDS ORDERED: TERBUTALINE 1 MG/ML VIAL SQ PRN (00:50)
[2020-09-18] MEDS ORDERED: LIDOCAINE 0.5% (PF) 5 MG/ML (50 ML SDV) SQ PRN (00:50)
[2020-09-18] MEDS ORDERED: METHYLERGONOVINE 0.2 MG/ML 1 ML AMP IM PRN (00:50)
[2020-09-18 01:08] LABS: Amphetamine Screen,Urine Not Detected (NotDetected); Barbiturate Screen,Urine Not Detected (NotDetected); Benzodiazepines Screen,Urine Not Detected (NotDetected); Cocaine Screen,Urine Not Detected (NotDetected); Methadone Screen, Urine Not Detected (NotDetected); Opiate Screen,Urine Not Detected (NotDetected); Oxycodone Screen, Urine Not Detected (NotDetected); Phencyclidine Screen,Urine Not Detected (NotDetected); Tricyclic Antidepressant,Urine Not Detected (NotDetected); Urn Cannabinoid Scrn Not Detected (NotDetected)
[2020-09-18] MEDS: LACTATED RINGERS 1,000 ML IV SCH (05:51)
[2020-09-18] MEDS ORDERED: OXYTOCIN 30 UNITS/500 ML NS 30 UNIT in SALINE 1 500ML.BAG IV SCH ×2 (06:00→20:15)
[2020-09-18 06:15] LABS: Basophils % (A) 0 %; Eosinophils # (A) 0.2 k/uL (0-0.7); Eosinophils % (A) 2 %; HCT 35.5 % (34.0-46.0); HGB 12.5 gm/dL (11.4-16.0); Lymphocytes # (A) 2.1 k/uL (1.0-4.8); Lymphocytes % (A) 20 %; MCH 28.9 pg (25.0-35.0); MCHC 35.2 g/dL (31.0-37.0); MCV 82.2 fL (80.0-100.0); Mean Platelet Volume 9.6; Monocytes # (A) 0.5 k/uL (0-1.0); Monocytes % (A) 5 %; Neutrophils # (A) 7.5 k/uL (1.3-7.7); Neutrophils % (A) 71 %; Platelet Count 154 k/uL (150-450); RBC 4.32 m/uL (3.80-5.40); RDW 14.2 % (11.5-15.5); WBC 10.5 k/uL (3.8-10.6)
[2020-09-18 06:27] LABS: ALT 14 U/L (4-34); AST 19 U/L (14-36); African American GFR (CKD) >90 (>60 ml/min/1.73 sqM); Blood Urea Nitrogen 16 mg/dL (7-17); LDH 462 U/L (313-618); Non-African American GFR(CKD) >90 (>60 ml/min/1.73 sqM); Uric Acid 5.7 mg/dL (3.7-7.4)
[2020-09-18 06:32] LABS: Creatinine,Urine Random 142.9 mg/dL; Protein/Creatinine Ratio,Urine 0.056
[2020-09-18] MEDS: BUTORPHANOL 1 MG/ML 1 ML VIAL IV PRN ×2 (09:49→13:30)
[2020-09-18] MEDS ORDERED: ACETAMINOPHEN TAB 325 MG TAB PO PRN (20:10)
[2020-09-18] MEDS ORDERED: diphenhydrAMINE 50 MG CAP PO PRN (20:10)
[2020-09-18] MEDS ORDERED: SIMETHICONE 80 MG CHEWABLE PO PRN (20:10)
[2020-09-18] MEDS ORDERED: diphenhydrAMINE 25 MG CAP PO PRN (20:10)
[2020-09-18] MEDS ORDERED: BENZOCAINE/MENTHOL SPRAY 1 GM/SPRAY AEROSOL TOPICAL PRN (20:10)
[2020-09-18] MEDS ORDERED: diphenhydrAMINE 50 MG/ML 1 ML VIAL IVP PRN ×2 (20:10)
[2020-09-18] MEDS ORDERED: ZOLPIDEM 5 MG TAB PO PRN (20:10)
[2020-09-18] MEDS ORDERED: LANOLIN CREAM 5 GM TUBE TOPICAL PRN (20:10)
[2020-09-18] MEDS ORDERED: HYDROCORTISONE 2.5% RECTAL CREAM 30 GM TUBE RECTAL PRN (20:10)
--- NOTE | 2020-09-18 20:13 | P.HPOB ---
History of Present Illness H&P Date: 09/17/20 Chief Complaint: Postdates induction of labor 20-year-old presents at 40 weeks and 1 day for induction of labor. Her cervix is closed, thick, -3 station. She is not nevaeh. heart tones 135 with moderate variability and reactive. Review of Systems All systems: negative Constitutional: Denies chills, Denies fever Eyes: denies blurred vision, denies pain Ears, nose, mouth and throat: Denies headache, Denies sore throat Cardiovascular: Denies chest pain, Denies shortness of breath Respiratory: Denies cough Gastrointestinal: Denies abdominal pain, Denies diarrhea, Denies nausea, Denies vomiting Genitourinary: Denies dysuria, Denies hematuria Musculoskeletal: Denies myalgias Integumentary: Denies pruritus, Denies rash Neurological: Denies numbness, Denies weakness Psychiatric: Denies anxiety, Denies depression Endocrine: Denies fatigue, Denies weight change Past Medical History Past Medical History: No Reported History Additional Past Medical History / Comment(s): depression /last seizure at 14 years old. Subjective history: She's had care with me since first trimester. Her blood type is O+, and because negative, rubella immune, hep is B-, GBS negative, HIV nonreactive. She has had random drug screens throughout the which have been negative. History of Any Multi-Drug Resistant Organisms: None Reported Past Surgical History: Ear Surgery Past Anesthesia/Blood Transfusion Reactions: No Reported Reaction Past Psychological History: Anxiety, Depression Smoking Status: Never smoker Past Alcohol Use History: None Reported Past Drug Use History: None Reported, Methamphetamine (Not during ) - Past Family History Mother Family Medical History: No Reported History Father Family Medical History: No Reported History Medications and Allergies Allergies Allergy/AdvReac Type Severity Reaction Status Date / Time No Known Allergies Allergy Verified 07/25/20 19:21 Exam Osteopathic Statement: *. No significant issues noted on an osteopathic structural exam other than those noted in the History and Physical/Consult. Intake and Output 09/18/20 09/18/20 09/18/20 06:59 14:59 22:59 Other: # Voids 2 2 Heart: Regular rate and rhythm Lungs: Clear to auscultation bilaterally Abdomen: Soft, nontender Extremities: Negative Homans sign Results Result Diagrams: 09/18/20 05:50 09/18/20 05:50 Abnormal Lab Results - Last 24 Hours (Table) 09/18/20 Range/Units 00:30 Urine Protein Trace H (Negative) Urine Glucose (UA) Trace H (Negative) Assessment and Plan (1) Encounter for elective induction of labor Current Visit: Yes Status: Acute Code(s): Z34.90 - ENCNTR FOR SUPRVSN OF NORMAL , UNSP, UNSP TRIMESTER SNOMED Code(s): 294760774 Plan: 1. Induction of labor with Cervidil and then amniotomy and Pitocin. 2. Anticipate normal vaginal delivery
--- NOTE | 2020-09-18 20:15 | P.PROBDLV ---
Vaginal Delivery Note - . Vaginal Delivery Note: 20-year-old presents at 40 weeks and 1 day for induction of labor. Her cervix is closed, thick, -3 station. She is not nevaeh. heart tones 135 with moderate variability and reactive. Cervidil was placed. In the morning her cervix was still fingertip dilated, 50% effaced, and -3 station. Pitocin augmentation was started. At 1330 she was 2 cm dilated, 50% effaced, and -2 station and she was nevaeh every few minutes. Amniotomy was performed and clear fluid noted. When she was uncomfortable she did get an epidural. Her cervix was completely dilated at 194. She pushed, delivered a viable male infant over intact perineum under epidural anesthesia at 1951. Head delivered OA, anterior shoulder delivered gentle downward guidance posterior shoulder and rest of body. Nose and mouth bulb suctioned, cord clamped and cut, placed mother's abdomen. Apgars 9, 10, weight 6 lbs. 10 oz. Placenta delivered spontaneously, intact with three-vessel cord at 1953. Vagina, cervix, perineum inspected. Second degree midline laceration was repaired with 0 Vicryl. Estimated blood loss 200 mL. Mother and baby in stable condition.
[2020-09-19 07:12] LABS: Basophils % (A) 0 %; Eosinophils # (A) 0.1 k/uL (0-0.7); Eosinophils % (A) 1 %; HCT 31.5 % (34.0-46.0); Lymphocytes # (A) 1.4 k/uL (1.0-4.8); Lymphocytes % (A) 10 %; MCH 28.9 pg (25.0-35.0); MCHC 35.1 g/dL (31.0-37.0); MCV 82.3 fL (80.0-100.0); Mean Platelet Volume 9.6; Monocytes # (A) 0.8 k/uL (0-1.0); Monocytes % (A) 6 %; Neutrophils # (A) 11.4 k/uL (1.3-7.7); Neutrophils % (A) 83 %; Platelet Count 133 k/uL (150-450); RBC 3.82 m/uL (3.80-5.40); RDW 14.1 % (11.5-15.5); WBC 13.8 k/uL (3.8-10.6)
[2020-09-19] MEDS: SENNOSIDES-DOCUSATE SODIUM 1 EACH TAB PO SCH ×2 (10:45→20:52)
[2020-09-19] MEDS: IBUPROFEN 600 MG TAB PO PRN (11:08)
[2020-09-19] MEDS: LACTATED RINGERS 1,000 ML IV SCH (17:14)
[2020-09-19] MEDS ORDERED: ROPIVACAINE 100 MG, fentaNYL (PF) 200 MCG in SODIUM CHLORIDE 0.9% 76 ML EPIDURAL ONE (20:41)
[2020-09-20] MEDS: IBUPROFEN 600 MG TAB PO PRN ×2 (00:13→07:41)
[2020-09-20] MEDS: SENNOSIDES-DOCUSATE SODIUM 1 EACH TAB PO SCH (07:40)
[2020-09-20 08:05] VITALS: BP 137/96; PULSE 88; RESP 18; TEMP 97.5
--- NOTE | 2020-09-20 08:59 | P.PNOBGVD ---
Subjective - Subjective Principal diagnosis: Status post normal vaginal delivery day #1 Interval history: Patient seen and examined. Denies nausea, vomiting, chest pain, shortness of breath, headache, right upper quadrant pain or any fever or chills. Patient reports: Reports appetite normal, Reports voiding normally, Reports pain well controlled, Reports ambulating normally [place]: doing well Objective - Latest Vital Signs Latest vital signs: Vital Signs Temp Pulse Resp BP Pulse Ox 09/20/20 08:00 97.5 F L 88 18 137/96 97 09/20/20 03:00 80 145/103 09/20/20 00:00 98.2 F 90 16 157/93 09/19/20 20:00 98.2 F 97 16 144/89 09/19/20 12:00 98 F 85 15 115/76 Intake and Output 09/19/20 09/20/20 09/20/20 22:59 06:59 14:59 Other: Voiding Method Toilet # Voids 1 1 1 - Exam Lungs: bilateral: normal Chest: Normal S1, Normal S2 Extremities: Present: normal Abdomen: Present: normal appearance, soft Uterus: Present: normal, firm Assessment and Plan (1) Encounter for elective induction of labor Current Visit: Yes Status: Resolved Code(s): Z34.90 - ENCNTR FOR SUPRVSN OF NORMAL , UNSP, UNSP TRIMESTER SNOMED Code(s): 904762200 (2) Status post normal vaginal delivery Current Visit: Yes Status: Acute Code(s): QBN6775 - SNOMED Code(s): 625904885 Plan: 1. Monitor blood pressures 2. Increase ambulation 3. care
--- NOTE | 2020-09-20 09:01 | P.DS ---
Providers Date of admission: 09/17/20 16:10 Expected date of discharge: 09/20/20 Attending physician: Zandra Stafford Primary care physician: Stated None - Discharge Diagnosis(es) (1) Encounter for elective induction of labor Current Visit: Yes Status: Resolved (2) Status post normal vaginal delivery Current Visit: Yes Status: Acute Hospital Course: Patient presented for induction of labor. She underwent normal vaginal delivery. Her course was complicated by some elevated blood pressures. I did keep her 1 extra night for these pressures. She does have some very low ones she does have some elevated ones. She denies any signs and symptoms of preeclampsia. Denies headache, right upper quadrant pain, nausea or vomiting, vision changes, fever, chills, shortness of breath or calf pain. I did review the signs and symptoms with her and advised her that if she develops any of these she is to call the office. I do anesthesia her later this week for another blood pressure check in the office. Plan - Discharge Summary New Discharge Prescriptions: New Ibuprofen [Motrin] 600 mg PO Q6HR PRN #30 tab PRN Reason: Mild Pain Or Fever >= 100.5 Discharge Medication List Ibuprofen [Motrin] 600 mg PO Q6HR PRN #30 tab 09/20/20 [Rx] Follow up Appointment(s)/Referral(s): Zandra Stafford DO [Doctor of Osteopathic Medicine] - 1 Week Discharge Disposition: HOME SELF-CARE
== END 2020-09-20 10:10 | disposition home or self-care (01) | DRG 807 ==
LOC: 4FBP 16:10
PROVIDERS: ADMIT Obstetrics & Gynecology; ATTEND Obstetrics & Gynecology
PROC: 0KQM0ZZ Repair Perineum Muscle, Open Approach (ICD-10-PCS; principal; 2020-09-18)
PROC: 10E0XZZ Delivery of Products of Conception, External Approach (ICD-10-PCS; principal; 2020-09-18)
PROC: 00HU33Z Insertion of Infusion Device into Spinal Canal, Percutaneous Approach (ICD-10-PCS; principal; 2020-09-18)
PROC: 3E0P7VZ Introduction of Hormone into Female Reproductive, Via Natural or Artificial Opening (ICD-10-PCS; principal; 2020-09-18)
PROC: 10907ZC Drainage of Amniotic Fluid, Therapeutic from Products of Conception, Via Natural or Artificial Opening (ICD-10-PCS; principal; 2020-09-18)
PROC: 3E0R3BZ Introduction of Anesthetic Agent into Spinal Canal, Percutaneous Approach (ICD-10-PCS; principal; 2020-09-18)
DX: O48.0 Post-term pregnancy (principal); Z37.0 Single live birth; O70.1 Second degree perineal laceration during delivery; R03.0 Elevated blood-pressure reading, without diagnosis of hypertension; O90.89 Other complications of the puerperium, not elsewhere classified; Z3A.40 40 weeks gestation of pregnancy; Z98.890 Other specified postprocedural states
CPT/HCPCS: 80306; 81003; 82565; 82570; 83615; 84156; 84450; 84460; 84520; 84550; 85025; 86850; 86900; 86901

== ENCOUNTER 2020-11-30 02:05 | Emergency (ER) | payer OTHER ==
[2020-11-30 02:14] VITALS: RESP 18
--- NOTE | 2020-11-30 03:21 | ED ---
Fever HPI - General Chief Complaint: Fever Stated Complaint: Fever,weakness,SOB Time Seen by Provider: 11/30/20 02:40 Source: patient Mode of arrival: ambulatory Limitations: no limitations - History of Present Illness MD Complaint: fever, other -: days(s) Context: sick contacts Associated Symptoms: chills, myalgias, headache, cough - Related Data Previous Rx's Medication Instructions Recorded Ibuprofen [Motrin] 600 mg PO Q6HR PRN #30 tab 09/20/20 Albuterol Nebulized [Ventolin 2.5 mg INHALATION Q4H PRN #50 nebu 11/30/20 Nebulized] Allergies Allergy/AdvReac Type Severity Reaction Status Date / Time No Known Allergies Allergy Verified 11/30/20 02:13 Review of Systems ROS Statement: Those systems with pertinent positive or pertinent negative responses have been documented in the HPI. ROS Other: All systems not noted in ROS Statement are negative. Constitutional: Reports: fever, chills Eyes: Denies: eye pain, vision change ENT: Denies: throat pain Respiratory: Reports: cough. Denies: dyspnea, wheezes Cardiovascular: Denies: chest pain, palpitations, edema, syncope Gastrointestinal: Denies: abdominal pain, nausea, vomiting, diarrhea Genitourinary: Denies: dysuria, hematuria Musculoskeletal: Reports: myalgia. Denies: back pain Skin: Denies: rash Neurological: Reports: headache. Denies: weakness, numbness Past Medical History Past Medical History: No Reported History Additional Past Medical History / Comment(s): depression History of Any Multi-Drug Resistant Organisms: None Reported Past Surgical History: Ear Surgery Past Anesthesia/Blood Transfusion Reactions: No Reported Reaction Past Psychological History: Anxiety, Depression Smoking Status: Never smoker Past Alcohol Use History: None Reported Past Drug Use History: Marijuana - Past Family History Mother Family Medical History: No Reported History Father Family Medical History: No Reported History General Exam Limitations: no limitations General appearance: alert, in no apparent distress Head exam: Present: atraumatic, normocephalic Eye exam: Present: normal appearance. Absent: scleral icterus, conjunctival injection ENT exam: Present: normal oropharynx Neck exam: Present: normal inspection Respiratory exam: Present: normal lung sounds bilaterally. Absent: respiratory distress, wheezes, rales, rhonchi, stridor Cardiovascular Exam: Present: regular rate, normal rhythm, normal heart sounds. Absent: systolic murmur, diastolic murmur, rubs, gallop GI/Abdominal exam: Present: soft. Absent: distended, tenderness, guarding, rebound, rigid, mass Extremities exam: Present: normal inspection, normal capillary refill. Absent: pedal edema, calf tenderness Back exam: Present: normal inspection. Absent: CVA tenderness (R), CVA tenderness (L) Neurological exam: Present: alert Skin exam: Present: warm, dry, intact, normal color. Absent: rash Course Vital Signs 11/30/20 11/30/20 02:09 03:38 Temperature 98.5 F 98.3 F Pulse Rate 93 78 Respiratory 18 18 Rate Blood Pressure 110/78 141/89 O2 Sat by Pulse 96 99 Oximetry Medical Decision Making - Medical Decision Making After discussion of risks and benefits, patient declines the antibody therapy. - Lab Data Lab Results 11/30/20 Range/Units 02:42 Coronavirus (PCR) Detected A (Not Detectd) Disposition Clinical Impression: COVID-19 Disposition: HOME SELF-CARE Condition: Good Instructions (If sedation given, give patient instructions): Coronavirus Disease 2019 (COVID-19) Prescriptions: Albuterol Nebulized [Ventolin Nebulized] 2.5 mg INHALATION Q4H PRN #50 nebu PRN Reason: Dyspnea Is patient prescribed a controlled substance at d/c from ED?: No Referrals: Barrie Thomas MD [Primary Care Provider] - 1-2 days
[2020-11-30 03:39] VITALS: BP 141/89; PULSE 78; TEMP 98.3
== END 2020-11-30 03:39 | disposition home or self-care (01) ==
LOC: EC 02:05
DX: U07.1 COVID-19 (principal); F41.9 Anxiety disorder, unspecified; F32.9 Major depressive disorder, single episode, unspecified
CPT/HCPCS: 87635; 99284

== ENCOUNTER 2021-01-14 21:00 | Emergency (ER) | payer OTHER ==
[2021-01-14 22:08] VITALS: RESP 18; TEMP 98
[2021-01-14] MEDS ORDERED: IPRATROPIUM-ALBUTEROL 3 ML NEB INHALATION STA (22:45)
[2021-01-14] MEDS ORDERED: predniSONE 20 MG TAB PO STA (22:45)
--- NOTE | 2021-01-14 22:46 | ED ---
Asthma HPI - General Chief Complaint: Shortness of Breath Stated Complaint: SOB, cough Time Seen by Provider: 01/14/21 22:45 Source: patient, RN notes reviewed, old records reviewed Mode of arrival: wheelchair Limitations: no limitations - History of Present Illness Initial Comments: This is a 20-year-old female DF for evaluation patient resents for asthma exacerbation weakness not feeling well.: 1 month and a half ago. Patient had coronavirus. Patient states symptoms that she's been having difficulties. No recent travel history or sick contacts. MD Complaint: "asthma attack", shortness of breath -: days(s) Asthma History: childhood onset, adult onset Severity: mild Context: none known Associated Symptoms: none Treatments Prior to Arrival: inhaled bronchodilator - Related Data Current Asthma Therapy: none Previous Rx's Medication Instructions Recorded Ibuprofen [Motrin] 600 mg PO Q6HR PRN #30 tab 09/20/20 Albuterol Nebulized [Ventolin 2.5 mg INHALATION Q4H PRN #50 nebu 11/30/20 Nebulized] Albuterol Sulfate [Proair Hfa] 1 - 2 puff INHALATION Q4H PRN #1 01/14/21 inhaler predniSONE 50 mg PO DAILY #5 tab 01/14/21 Allergies Allergy/AdvReac Type Severity Reaction Status Date / Time No Known Allergies Allergy Verified 01/14/21 22:05 Review of Systems ROS Statement: Those systems with pertinent positive or pertinent negative responses have been documented in the HPI. ROS Other: All systems not noted in ROS Statement are negative. Past Medical History Past Medical History: Asthma Additional Past Medical History / Comment(s): depression History of Any Multi-Drug Resistant Organisms: None Reported Past Surgical History: Ear Surgery Past Anesthesia/Blood Transfusion Reactions: No Reported Reaction Past Psychological History: Anxiety, Depression Smoking Status: Never smoker Past Alcohol Use History: None Reported Past Drug Use History: Marijuana - Past Family History Mother Family Medical History: No Reported History Father Family Medical History: No Reported History General Exam Limitations: no limitations General appearance: alert, in no apparent distress Head exam: Present: atraumatic, normocephalic, normal inspection Eye exam: Present: normal appearance, PERRL, EOMI. Absent: scleral icterus, conjunctival injection, periorbital swelling ENT exam: Present: normal exam, mucous membranes moist Neck exam: Present: normal inspection. Absent: tenderness, meningismus, lymphadenopathy Respiratory exam: Present: wheezes. Absent: normal lung sounds bilaterally, respiratory distress, rales, rhonchi, stridor Cardiovascular Exam: Present: regular rate, normal rhythm, normal heart sounds. Absent: systolic murmur, diastolic murmur, rubs, gallop, clicks GI/Abdominal exam: Present: soft, normal bowel sounds. Absent: distended, tenderness, guarding, rebound, rigid Extremities exam: Present: normal inspection, full ROM, normal capillary refill. Absent: tenderness, pedal edema, joint swelling, calf tenderness Back exam: Present: normal inspection Neurological exam: Present: alert, oriented X3, CN II-XII intact Psychiatric exam: Present: normal affect, normal mood Skin exam: Present: warm, dry, intact, normal color. Absent: rash Course Vital Signs 01/14/21 01/14/21 01/14/21 22:06 22:30 23:04 Temperature 98.0 F Pulse Rate 76 76 Respiratory 18 18 Rate Blood Pressure 129/90 O2 Sat by Pulse 99 Oximetry 01/14/21 23:24 Temperature Pulse Rate 80 Respiratory Rate Blood Pressure O2 Sat by Pulse Oximetry - Reevaluation(s) Reevaluation #1: 01/14/21 23:53 Medical records reviewed Reevaluation #2: 01/14/21 23:53 Symptoms resolved here in the ER with no shortness of breath Reevaluation #3: 01/14/21 23:53 Patient informed of findings results, questions answered Medical Decision Making - Medical Decision Making 20 female with asthma exacerbation, history of covert one half months ago central breathing since, out of inhaler at home. Feeling improved and can be discharged - Radiology Data Radiology results: report reviewed (Chest x-rays negative for acute disease), i mage reviewed Disposition Clinical Impression: Asthma with acute exacerbation Disposition: HOME SELF-CARE Condition: Good Instructions (If sedation given, give patient instructions): Asthma (ED) Prescriptions: predniSONE 50 mg PO DAILY #5 tab Albuterol Sulfate [Proair Hfa] 1 - 2 puff INHALATION Q4H PRN #1 inhaler PRN Reason: Shortness Of Breath Is patient prescribed a controlled substance at d/c from ED?: No Referrals: Michaela Richter MD [Primary Care Provider] - 1-2 days
--- NOTE | 2021-01-14 22:58 | XR ---
EXAMINATION TYPE: XR chest 2V DATE OF EXAM: 01/14/2021 COMPARISON: 07/02/2020 HISTORY: Short of breath TECHNIQUE: 2 views FINDINGS: Heart and mediastinum are normal. Lungs are clear. Diaphragm is normal. Bony thorax appears normal. IMPRESSION: Normal chest. Normal heart. No change.
[2021-01-15 00:30] VITALS: BP 123/79; PULSE 79
== END 2021-01-15 00:29 | disposition home or self-care (01) ==
LOC: EC 21:00
DX: J45.901 Unspecified asthma with (acute) exacerbation (principal)
CPT/HCPCS: 94640; 71046; 99284; J7512

== ENCOUNTER 2021-05-09 18:21 | Emergency (ER) | payer OTHER ==
[2021-05-09 18:33] VITALS: RESP 18
[2021-05-09] MEDS ORDERED: KETOROLAC 15 MG/ML 1 ML VIAL IVP STA (20:09)
[2021-05-09] MEDS ORDERED: SODIUM CHLORIDE 0.9% 1,000 ML IV STA (20:09)
--- NOTE | 2021-05-09 20:13 | ED ---
Back Pain HPI - General Chief Complaint: Back Pain/Injury Stated Complaint: back pain Time Seen by Provider: 05/09/21 20:04 Source: patient, RN notes reviewed Limitations: no limitations - History of Present Illness Initial Comments: 20-year-old well-appearing white female presents to the emergency room with complaints of right flank pain that started yesterday. Patient states that she's also having some difficulty with urination and fever and chills. She states that she has an 8-month-old baby at home that she's been having difficulty picking up because of the pain. She denies any injuries. Denies any nausea or vomiting. He states that the pain is worse with movement or bending. The pain is mostly on her right hip. She has not had this pain in the past. MD Complaint: other (Right flank pain) -: days(s) (2) Similar Symptoms Previously: No Radiation: none Severity scale (1-10): 9 Quality: sharp Consistency: constant Improves With: immobilization Worsens With: movement Associated Symptoms: fever/chills (Chills), other (dysuria) Treatments Prior to Arrival: NSAIDS - Related Data Previous Rx's Medication Instructions Recorded Ibuprofen [Motrin] 600 mg PO Q6HR PRN #30 tab 09/20/20 Albuterol Nebulized [Ventolin 2.5 mg INHALATION Q4H PRN #50 nebu 11/30/20 Nebulized] Albuterol Sulfate [Proair Hfa] 1 - 2 puff INHALATION Q4H PRN #1 01/14/21 inhaler predniSONE 50 mg PO DAILY #5 tab 01/14/21 Ibuprofen [Motrin] 600 mg PO Q8HR PRN #30 tab 05/09/21 Lidocaine 5% Patch [Lidoderm] 1 patch TOPICAL DAILY 14 Days #14 05/09/21 patch Allergies Allergy/AdvReac Type Severity Reaction Status Date / Time No Known Allergies Allergy Verified 05/09/21 18:31 Review of Systems ROS Statement: Those systems with pertinent positive or pertinent negative responses have been documented in the HPI. ROS Other: All systems not noted in ROS Statement are negative. Past Medical History Past Medical History: Asthma Additional Past Medical History / Comment(s): depression History of Any Multi-Drug Resistant Organisms: None Reported Past Surgical History: Ear Surgery Past Anesthesia/Blood Transfusion Reactions: No Reported Reaction Past Psychological History: Anxiety, Depression Smoking Status: Never smoker Past Alcohol Use History: None Reported Past Drug Use History: Marijuana - Past Family History Mother Family Medical History: No Reported History Father Family Medical History: No Reported History General Exam Limitations: no limitations General appearance: alert, in no apparent distress Head exam: Present: atraumatic, normocephalic, normal inspection Eye exam: Present: normal appearance, PERRL, EOMI. Absent: scleral icterus, conjunctival injection, periorbital swelling ENT exam: Present: normal exam, mucous membranes moist Neck exam: Present: normal inspection, full ROM. Absent: tenderness, meningismus, lymphadenopathy Respiratory exam: Present: normal lung sounds bilaterally. Absent: respiratory distress, wheezes, rales, rhonchi, stridor Cardiovascular Exam: Present: regular rate, normal rhythm, normal heart sounds. Absent: systolic murmur, diastolic murmur, rubs, gallop, clicks, JVD GI/Abdominal exam: Present: soft, normal bowel sounds. Absent: distended, tenderness, guarding, rebound, rigid Extremities exam: Present: full ROM, normal capillary refill. Absent: pedal edema, calf tenderness Back exam: Present: normal inspection, CVA tenderness (R). Absent: CVA tenderness (L), muscle spasm, paraspinal tenderness, vertebral tenderness, rash noted Expanded Back exam: Absent: saddle anesthesia Back exam: Negative Straight Leg Raising: Left, Right Neurological exam: Present: alert, oriented X3, CN II-XII intact Psychiatric exam: Present: normal affect, normal mood Skin exam: Present: warm, dry, intact, normal color. Absent: rash, cyanosis, diaphoretic, petechiae, pallor Course Vital Signs 05/09/21 18:31 Temperature 98.1 F Pulse Rate 90 Respiratory 18 Rate Blood Pressure 118/86 O2 Sat by Pulse 96 Oximetry Medical Decision Making - Medical Decision Making Patient's UA is clear with no signs of infection. Urine test is negative. Her abdomen is soft and nontender. This is likely musculoskeletal pain as she has pain with palpation at the SI joint. She was given Toradol and Flexeril in the emergency room and prescribed Lidoderm patches. Directed to follow up with the primary care doctor next week. Return with any new or worsening symptoms. Case discussed with Dr. Casey. - Lab Data Result diagrams: 05/09/21 20:35 05/09/21 20:35 Lab Results 05/09/21 05/09/21 05/09/21 Range/Units 20:35 20:35 20:35 WBC 13.1 H (3.8-10.6) k/uL RBC 5.16 (3.80-5.40) m/uL Hgb 15.0 (11.4-16.0) gm/dL Hct 43.5 (34.0-46.0) % MCV 84.1 (80.0-100.0) fL MCH 29.0 (25.0-35.0) pg MCHC 34.5 (31.0-37.0) g/dL RDW 13.1 (11.5-15.5) % Plt Count 223 (150-450) k/uL MPV 8.1 Neutrophils % 68 % Lymphocytes % 22 % Monocytes % 4 % Eosinophils % 5 % Basophils % 0 % Neutrophils # 8.8 H (1.3-7.7) k/uL Lymphocytes # 2.9 (1.0-4.8) k/uL Monocytes # 0.5 (0-1.0) k/uL Eosinophils # 0.7 (0-0.7) k/uL Basophils # 0.0 (0-0.2) k/uL Sodium (137-145) mmol/L Potassium (3.5-5.1) mmol/L Chloride (98-107) mmol/L Carbon Dioxide (22-30) mmol/L Anion Gap mmol/L BUN (7-17) mg/dL Creatinine (0.52-1.04) mg/dL Est GFR (CKD-EPI)AfAm (>60 ml/min/1.73 sqM) Est GFR (CKD-EPI)NonAf (>60 ml/min/1.73 sqM) Glucose (74-99) mg/dL Calcium (8.4-10.2) mg/dL Total Bilirubin (0.2-1.3) mg/dL AST (14-36) U/L ALT (4-34) U/L Alkaline Phosphatase (38-126) U/L Total Protein (6.3-8.2) g/dL Albumin (3.5-5.0) g/dL Urine Color Yellow Urine Appearance Clear (Clear) Urine pH 5.5 (5.0-8.0) Ur Specific [place] 1.030 (1.001-1.035) Urine Protein Negative (Negative) Urine Glucose (UA) Negative (Negative) Urine Ketones Negative (Negative) Urine Blood Negative (Negative) Urine Nitrite Negative (Negative) Urine Bilirubin Negative (Negative) Urine Urobilinogen <2.0 (<2.0) mg/dL Ur Leukocyte Esterase Negative (Negative) Urine HCG, Qual Not Detected (Not Detectd) 05/09/21 Range/Units 20:35 WBC (3.8-10.6) k/uL RBC (3.80-5.40) m/uL Hgb (11.4-16.0) gm/dL Hct (34.0-46.0) % MCV (80.0-100.0) fL MCH (25.0-35.0) pg MCHC (31.0-37.0) g/dL RDW (11.5-15.5) % Plt Count (150-450) k/uL MPV Neutrophils % % Lymphocytes % % Monocytes % % Eosinophils % % Basophils % % Neutrophils # (1.3-7.7) k/uL Lymphocytes # (1.0-4.8) k/uL Monocytes # (0-1.0) k/uL Eosinophils # (0-0.7) k/uL Basophils # (0-0.2) k/uL Sodium 138 (137-145) mmol/L Potassium 4.4 (3.5-5.1) mmol/L Chloride 105 (98-107) mmol/L Carbon Dioxide 23 (22-30) mmol/L Anion Gap 10 mmol/L BUN 24 H (7-17) mg/dL Creatinine 0.89 (0.52-1.04) mg/dL Est GFR (CKD-EPI)AfAm >90 (>60 ml/min/1.73 sqM) Est GFR (CKD-EPI)NonAf >90 (>60 ml/min/1.73 sqM) Glucose 94 (74-99) mg/dL Calcium 9.9 (8.4-10.2) mg/dL Total Bilirubin 0.3 (0.2-1.3) mg/dL AST 28 (14-36) U/L ALT 26 (4-34) U/L Alkaline Phosphatase 86 (38-126) U/L Total Protein 8.0 (6.3-8.2) g/dL Albumin 4.7 (3.5-5.0) g/dL Urine Color Urine Appearance (Clear) Urine pH (5.0-8.0) Ur Specific [place] (1.001-1.035) Urine Protein (Negative) Urine Glucose (UA) (Negative) Urine Ketones (Negative) Urine Blood (Negative) Urine Nitrite (Negative) Urine Bilirubin (Negative) Urine Urobilinogen (<2.0) mg/dL Ur Leukocyte Esterase (Negative) Urine HCG, Qual (Not Detectd) Disposition Clinical Impression: Low back pain Disposition: HOME SELF-CARE Condition: Good Instructions (If sedation given, give patient instructions): Acute Low Back Pain (ED), Lower Back Exercises (ED) Additional Instructions: Take Motrin as prescribed for pain and inflammation. He needs the Lidoderm patches once a day to the site of pain. Follow-up with your primary care doctor next week. Increase your fluid intake. Return to the emergency room with any new or worsening symptoms. Prescriptions: Lidocaine 5% Patch [Lidoderm] 1 patch TOPICAL DAILY 14 Days #14 patch Ibuprofen [Motrin] 600 mg PO Q8HR PRN #30 tab PRN Reason: Pain Is patient prescribed a controlled substance at d/c from ED?: No Referrals: Michaela Richter MD [Primary Care Provider] - 1-2 days Time of Disposition: 21:25
[2021-05-09 20:43] LABS: Basophils % (A) 0 %; Eosinophils # (A) 0.7 k/uL (0-0.7); Eosinophils % (A) 5 %; HCT 43.5 % (34.0-46.0); Lymphocytes # (A) 2.9 k/uL (1.0-4.8); Lymphocytes % (A) 22 %; MCHC 34.5 g/dL (31.0-37.0); MCV 84.1 fL (80.0-100.0); Mean Platelet Volume 8.1; Monocytes # (A) 0.5 k/uL (0-1.0); Monocytes % (A) 4 %; Neutrophils # (A) 8.8 k/uL (1.3-7.7); Neutrophils % (A) 68 %; Platelet Count 223 k/uL (150-450); RBC 5.16 m/uL (3.80-5.40); RDW 13.1 % (11.5-15.5); WBC 13.1 k/uL (3.8-10.6)
[2021-05-09 20:57] LABS: ALT 26 U/L (4-34); AST 28 U/L (14-36); African American GFR (CKD) >90 (>60 ml/min/1.73 sqM); Albumin 4.7 g/dL (3.5-5.0); Alkaline Phosphatase 86 U/L (38-126); Anion Gap 10 mmol/L; Blood Urea Nitrogen 24 mg/dL (7-17); Calcium 9.9 mg/dL (8.4-10.2); Carbon Dioxide 23 mmol/L (22-30); Chloride 105 mmol/L (98-107); Glucose 94 mg/dL (74-99); Non-African American GFR(CKD) >90 (>60 ml/min/1.73 sqM); Potassium 4.4 mmol/L (3.5-5.1); Sodium 138 mmol/L (137-145); Total Bilirubin 0.3 mg/dL (0.2-1.3)
[2021-05-09 21:05] LABS: Appearance,Urine Clear (Clear); Bilirubin,Urine Negative (Negative); Blood,Urine Negative (Negative); Color,Urine Yellow; Glucose,Urine (UA) Negative (Negative); Ketones,Urine Negative (Negative); Leukocyte Esterase,Urine Negative (Negative); Nitrite,Urine Negative (Negative); PH, Urine 5.5 (5.0-8.0); Protein,Urine Negative (Negative); Urobilinogen,Urine <2.0 mg/dL (<2.0)
[2021-05-09] MEDS ORDERED: CYCLOBENZAPRINE 10 MG TAB PO STA (21:23)
[2021-05-09 22:07] VITALS: BP 120/84; PULSE 88; TEMP 98.2
== END 2021-05-09 21:47 | disposition home or self-care (01) ==
LOC: EC 18:21
DX: M54.5 Low back pain (principal); R10.9 Unspecified abdominal pain; M25.551 Pain in right hip; R30.0 Dysuria; R50.9 Fever, unspecified; J45.909 Unspecified asthma, uncomplicated; F32.9 Major depressive disorder, single episode, unspecified; F41.9 Anxiety disorder, unspecified; F12.90 Cannabis use, unspecified, uncomplicated; Z79.51 Long term (current) use of inhaled steroids
CPT/HCPCS: 36415; 80053; 85025; 81003; 81025; 99284; 96374; 96361; J1885

== ENCOUNTER 2022-11-28 12:29 | Emergency (ER) | payer OTHER ==
[2022-11-28] MEDS ORDERED: IPRATROPIUM-ALBUTEROL 3 ML NEB INHALATION STA (13:35)
[2022-11-28] MEDS ORDERED: methylPREDNISolone SOD SUCCI 125 MG/2 ML VIAL IM ONE (13:36)
--- NOTE | 2022-11-28 14:17 | XR ---
EXAMINATION TYPE: XR chest 2V DATE OF EXAM: 11/28/2022 COMPARISON: Chest x-ray January 14, 2021 HISTORY: Cough and difficulty in breathing. TECHNIQUE: Frontal and lateral views of the chest are obtained. FINDINGS: There is no focal air space opacity, pleural effusion, or pneumothorax seen. The cardiac silhouette size is within normal limits. The osseous structures are intact. IMPRESSION: No acute process. No significant change from prior.
--- NOTE | 2022-11-28 14:23 | ED ---
URI HPI - General Chief Complaint: Upper Respiratory Infection Stated Complaint: cough, nasal congestion Time Seen by Provider: 11/28/22 12:40 Source: patient, RN notes reviewed Mode of arrival: ambulatory Limitations: no limitations - History of Present Illness Initial Comments: This is a 22-year-old female who presents to the emergency department for c oughing, congestion, and shortness of breath. Symptoms started a little over one week ago. She's been around her mother who has the same symptoms. She feels like she's had fevers and chills, but has not checked her temperature. She does have a history of asthma, however she's been out of her rescue inhaler. Denies any sore throat, chest pain, palpitations, abdominal pain, nausea, vo miting, diarrhea, back pain, or headaches. MD Complaint: cough, nasal congestion Onset/Timin -: week(s) - Related Data Previous Rx's Medication Instructions Recorded Ibuprofen [Motrin] 600 mg PO Q6HR PRN #30 tab 09/20/20 Albuterol Nebulized [Ventolin 2.5 mg INHALATION Q4H PRN #50 nebu 11/30/20 Nebulized] Albuterol Sulfate [Proair Hfa] 1 - 2 puff INHALATION Q4H PRN #1 01/14/21 inhaler predniSONE 50 mg PO DAILY #5 tab 01/14/21 Ibuprofen [Motrin] 600 mg PO Q8HR PRN #30 tab 05/09/21 Lidocaine 5% Patch [Lidoderm] 1 patch TOPICAL DAILY 14 Days #14 05/09/21 patch Albuterol Sulfate [Albuterol 1 puff PO Q4-6H PRN #8.5 gm 11/28/22 Sulfate Hfa] Azithromycin [Zithromax] 250 mg PO DIRECTED #6 tab 11/28/22 Promethazine/Dextromethorphan 5 ml PO Q4-6H PRN #473 ml 11/28/22 [Promethazine-Dm Syrup] predniSONE 50 mg PO DAILY 4 Days #4 tablet 11/28/22 Allergies Allergy/AdvReac Type Severity Reaction Status Date / Time No Known Allergies Allergy Verified 11/28/22 12:39 Review of Systems ROS Statement: Those systems with pertinent positive or pertinent negative responses have been documented in the HPI. ROS Other: All systems not noted in ROS Statement are negative. Past Medical History Past Medical History: Asthma Additional Past Medical History / Comment(s): depression History of Any Multi-Drug Resistant Organisms: None Reported Past Surgical History: Ear Surgery Past Anesthesia/Blood Transfusion Reactions: No Reported Reaction Past Psychological History: Anxiety, Depression Smoking Status: Never smoker Past Alcohol Use History: None Reported Past Drug Use History: Marijuana - Past Family History Mother Family Medical History: No Reported History Father Family Medical History: No Reported History General Exam Limitations: no limitations General appearance: alert, in no apparent distress Head exam: Present: atraumatic, normocephalic, normal inspection Respiratory exam: Present: normal lung sounds bilaterally. Absent: respiratory distress, wheezes, rales, rhonchi, stridor Cardiovascular Exam: Present: regular rate, normal rhythm, normal heart sounds. Absent: systolic murmur, diastolic murmur, rubs, gallop, clicks Neurological exam: Present: alert, oriented X3, CN II-XII intact Psychiatric exam: Present: normal affect, normal mood Skin exam: Present: warm, dry, intact, normal color. Absent: rash Course Vital Signs 11/28/22 11/28/22 11/28/22 12:36 12:48 13:48 Temperature 98.4 F 98.4 F Pulse Rate 79 80 Respiratory 20 Rate Blood Pressure 111/75 O2 Sat by Pulse 97 Oximetry 11/28/22 11/28/22 13:56 14:32 Temperature 97.8 F Pulse Rate 80 98 Respiratory 14 Rate Blood Pressure 120/73 O2 Sat by Pulse 98 Oximetry Medical Decision Making - Medical Decision Making This is a 22-year-old female who presents to the emergency department for coughing, congestion, and shortness of breath. Was pt. sent in by a medical professional or institution? @ -No Did you speak to anyone other than the patient for history? @ -No Did you review nursing and triage notes? @ -Yes, and I agree, it is accurate with regards to the patient's symptoms. Were old charts reviewed? @ -No Differential Diagnosis? @ -Differential Cough: Influenza, Covid, RSV, croup, allergic rhinitis, GERD, pneumonia, bronchitis, COPD, viral pharyngitis, streptococcal pharyngitis, this is not meant to be an all-inclusive list. X-rays interpreted by me (1pt min.)? @ -Chest x-ray obtained, my interpretation identifies no localized consolidations or infiltrates. What testing was considered but not performed? (CT, X-rays, U/S, labs)? Why? @ -None What meds were considered but not given? Why? @ -None Did you discuss the management of the patient with other professionals? @ -No Did you reconcile home meds? @ -No Was smoking cessation discussed for >3mins.? @ -No Was critical care preformed (if so, how long)? @ -No Were there social determinants of health that impacted care today? How? (Homelessness, low income, unemployed, alcoholism, drug addiction, tr ansportation, low edu. Level, literacy, decrease access to med. care, senior care, rehab)? @ -No Was there de-escalation of care discussed even if they declined? (Discuss DNR or withdrawal of care, Hospice)? @ -No What co-morbidities impacted this encounter? (DM, HTN, Smoking, COPD, CAD, Cancer, CVA, Hep., AIDS, mental health diagnosis, sleep apnea, morbid obesity)? @ -Asthma Was patient admitted / discharged? @ -Discharged. Chest x-ray reveals no acute findings. Patient negative for Covid, influenza, and RSV. She was given a DuoNeb breathing treatment with relief in symptoms. Given that symptoms have been present for over a week at this point, will start the patient on a course of antibiotics. She was given prescriptions for a Z-Franko, promethazine DM cough syrup, prednisone, and an albuterol inhaler. Dosing instructions reviewed. She was advised that the cough medication may make her drowsy, and she should take it at night until she knows how it effects her. Otherwise advised supportive care. Undiagnosed new problem with uncertain prognosis? @ -None Drug Therapy requiring intensive monitoring for toxicity (Heparin, Nitro, Insulin, Cardizem)? @ -None Were any procedures done? @ -None Diagnosis/symptom? @ -Bronchitis Acute, or Chronic, or Acute on Chronic? @ -Acute Uncomplicated (without systemic symptoms) or Complicated (systemic symptoms)? @ -Uncomplicated Side effects of treatment? @ -None Exacerbation, Progression, or Severe Exacerbation] @ -Not applicable Poses a threat to life or bodily function? @ -No Return precautions reviewed in depth, the patient is instructed to return to the emergency department with any new, worsening, or concerning symptoms. Patient ve rbalized understanding. This case was discussed in detail with the attending ED physician, Dr. Beckford. Presentation, findings, and treatment plan discussed in detail as well. - Lab Data Lab Results 11/28/22 11/28/22 Range/Units 13:00 13:00 Coronavirus (PCR) Not Detected (Not Detectd) Influenza Type A RNA Not Detected (Not Detectd) Influenza Type B (PCR) Not Detected (Not Detectd) - Radiology Data Radiology results: report reviewed, image reviewed Disposition Clinical Impression: Bronchitis Disposition: HOME SELF-CARE Instructions (If sedation given, give patient instructions): Acute Bronchitis (ED) Additional Instructions: Return to the emergency department with any new, worsening, or concerning symptoms. Take the antibiotic as prescribed for 5 days. Take the prednisone daily for 4 days, with your first dose beginning tomorrow, as you already received a dose of steroids in the emergency department. The albuterol inhaler and cough medication can be used every 4-6 hours as needed. The cough medication may make you drowsy and you should take it at night until you know how it affects you. Follow up with your primary care provider in 1-2 days. Prescriptions: Albuterol Sulfate [Albuterol Sulfate Hfa] 1 puff PO Q4-6H PRN #8.5 gm PRN Reason: Shortness Of Breath predniSONE 50 mg PO DAILY 4 Days #4 tablet Promethazine/Dextromethorphan [Promethazine-Dm Syrup] 5 ml PO Q4-6H PRN #473 ml PRN Reason: Cough Azithromycin [Zithromax] 250 mg PO DIRECTED #6 tab Is patient prescribed a controlled substance at d/c from ED?: No Referrals: Barrie Thomas MD [Primary Care Provider] - 1-2 days
[2022-11-28] MEDS ORDERED: ONDANSETRON 4 MG ODT STARTER PACK 2 TAB BTL PO STA (14:31)
[2022-11-28 14:32] VITALS: BP 120/73; PULSE 98; RESP 14; TEMP 97.8
== END 2022-11-28 14:41 | disposition home or self-care (01) ==
LOC: EC 12:29
DX: J45.909 Unspecified asthma, uncomplicated (principal); F41.9 Anxiety disorder, unspecified; F32.A Depression, unspecified; F12.90 Cannabis use, unspecified, uncomplicated; Z79.899 Other long term (current) drug therapy; Z20.822 Contact with and (suspected) exposure to COVID-19
CPT/HCPCS: 99283 ×2; 96372 ×2; 94640; 87502; 87635; 71046; J2930